=== PATIENT | female | born 1990 | race Caucasian/White ===

== ENCOUNTER 2016-11-06 20:52 | Emergency (ER) | payer OTHER ==
[~2016-11-06] VITALS: Ht 160 cm; Wt 58.9 kg
[~2016-11-06 20:52] MED LIST: CHOL2000 PO; COLE1TAB PO; FERR325T5 PO; IUD'IUD INT UTER; OXYC-57 PO; PRED20TA2 PO; SERT25TA PO; TRAZ100T29 PO
[2016-11-06 20:55] VITALS: TEMP 37.1; Ht 160 cm; Wt 58.9 kg
[2016-11-06 22:02] LABS: INR 1.1 (0.9-1.1); PARTIAL THROMBOPLASTIN RATIO 1.1; PROTHROMBIN TIME (PATIENT) 11.5 SECONDS (9.0-12.0)
[2016-11-06 22:11] LABS: PREG INTERNAL NEGATIVE QC NEG CLEAR BACKGROUND; PREG INTERNAL POSITIVE QC POS CONTROL LINE
[2016-11-06 22:21] LABS: HEMATOCRIT 34.5 % (37-47); MEAN CELL VOLUME 88.2 fL (80-100); MEAN CORPUSCULAR HEMOGLOBIN 30.7 pg (25-34); MEAN CORPUSCULAR HGB CONC 34.8 g/dl (32-36); MEAN PLATELET VOLUME 9.3 fL (7.4-10.4); PLATELET COUNT 226 K/uL (130-400); RED BLOOD COUNT 3.91 M/uL (4.2-5.4); WHITE BLOOD COUNT 7.66 K/uL (4.8-10.8)
[2016-11-06] MEDS ORDERED: LEVO1IUD INT UTER (22:39)
[2016-11-06] MEDS ORDERED: BUSP-8 PO (22:39)
[2016-11-06 22:40] LABS: BUN/CREATININE RATIO 15.7 (10-20); CALCIUM 8.9 mg/dl (8.5-10.1); CREATININE 0.76 mg/dl (0.60-1.20); MAGNESIUM 2.2 mg/dl (1.8-2.4); POTASSIUM 3.3 mmol/L (3.5-5.1); THYROID STIMULATING HORMONE 0.848 uIu/ml (0.300-4.500)
[2016-11-06 23:00] LABS: BASO % 0.4 %; BASO ABS # 0.03 K/uL (0-0.2); COMPLETE YES; EOS % 2.2 %; IG% 0.3 %; LYMPH % 52.6 %; LYMPH ABS # 4.03 K/uL (1.2-3.4); NEUT % 38.5 %; SMUDGE CELLS PRESENT
[2016-11-06 23:19] VITALS: BP 123/80; PULSE 62; O2SAT 100
--- NOTE | 2016-11-07 05:08 | EMERGENCY ROOM VISIT NOTE ---
History First contact with patient: 21:27 Chief Complaint: LEG PAIN,LEG INJURY Stated Complaint: BRUISING ON LEGS History of Present Illness The patient is a 26 year old female who presents to the Emergency Room with complaints of nontraumatic bruising to bilateral lower legs. Patient states she 's had this problem before. She is unsure why. She is on her menstrual cycle. She's been taking Motrin. No known injury to the area. Patient denies chest pain, dyspnea, fever, chills, recent illness, new medications, abdominal pain, numbness, tingling, rash to her chest or any other area. Review of Systems See HPI for pertinent positives & negatives. A total of 10 systems reviewed and were otherwise negative. Past Medical/Surgical History Medical Problems: (1) No pertinent past medical history Family History Patient reports no known family medical history. Social History Smoking Status: Never Smoker Marital Status: single Occupation Status: [email or web address] student Current/Historical Medications Scheduled Buspirone Hcl (Buspirone Hcl), 10 MG PO DAILY Cholecalciferol (Vitamin D3), 4,000 INTER.UNIT PO DAILY Ferrous Sulfate (Ferrous Sulfate), 325 MG PO DAILY Levonorgestrel (Iud) (Geovanna), INT UTER UD Sertraline (Zoloft), 25 MG PO DAILY Trazodone Hcl (Trazodone), 100 MG PO HS Allergies Coded Allergies: Ceftriaxone (Verified Allergy, Severe, anaphylaxis, 11/06/16) Pineapple (Verified Allergy, Intermediate, rash, 11/06/16) [place] (Verified Allergy, Intermediate, rash, 11/06/16) Codeine (Verified Adverse Reaction, Unknown, HALLUCINCATION/VOMITING, ) Physical Exam Vital Signs Date Time Temp Pulse Resp B/P Pulse Ox O2 Delivery O2 Flow Rate FiO2 11/06/16 23:19 62 16 123/80 100 Room Air 11/06/16 22:32 58 20 121/69 100 Room Air 11/06/16 20:55 37.1 78 20 141/78 99 Room Air Pain Rating (0-10): 0 Physical Exam VITALS: Vitals are noted on the nurse's note and reviewed by myself. Vital signs stable. GENERAL: Pleasant female, in no acute distress, nondiaphoretic, well-developed well-nourished. SKIN: Capillary reflex less than 2 seconds. Blanchable contusions to lower legs that is nonraised. No petechiae no rash to hands or feet, no skin sloughing HEENT: Normocephalic. PERRLA. EOMI. Nares patent. Mucous membranes moist. Neck is supple without nuchal rigidity. No bleeding gums. HEART: Regular rate and rhythm without murmurs gallops or rubs. LUNGS: Clear to auscultation bilaterally without wheezes, rales or rhonchi. No retractions or accessory muscle use. ABDOMEN: Positive bowel sounds x 4. Normal tympanic percussion. Soft, nontender, without masses or organomegaly. Bermudez sign negative. No guarding or rebound tenderness. MUSCULOSKELETAL: No gross musculoskeletal defects. No pedal edema. No calf tenderness. NEURO: Patient was alert and oriented to person place and time. Normal sensation to light and sharp touch. . No focal neurological deficits. Medical Decision & Procedures Laboratory Results 11/06/16 21:38 Red Blood Count 3.91, Mean Corpuscular Volume 88.2, Mean Corpuscular Hemoglobin 30.7, Mean Corpuscular Hemoglobin Concent 34.8, Mean Platelet Volume 9.3, Neutrophils (%) (Auto) 38.5, Lymphocytes (%) (Auto) 52.6, Monocytes (%) (Auto) 6.0, Eosinophils (%) (Auto) 2.2, Basophils (%) (Auto) 0.4, Neutrophils # (Auto) 2.95, Lymphocytes # (Auto) 4.03, Monocytes # (Auto) 0.46, Eosinophils # (Auto) 0.17, Basophils # (Auto) 0.03 11/06/16 21:38 Test 11/06/16 21:38 White Blood Count 7.66 K/uL (4.8-10.8) Red Blood Count 3.91 M/uL (4.2-5.4) Hemoglobin 12.0 g/dL (12.0-16.0) Hematocrit 34.5 % (37-47) Mean Corpuscular Volume 88.2 fL (80-100) Mean Corpuscular Hemoglobin 30.7 pg (25-34) Mean Corpuscular Hemoglobin Concent 34.8 g/dl (32-36) Platelet Count 226 K/uL (130-400) Mean Platelet Volume 9.3 fL (7.4-10.4) Neutrophils (%) (Auto) 38.5 % Lymphocytes (%) (Auto) 52.6 % Monocytes (%) (Auto) 6.0 % Eosinophils (%) (Auto) 2.2 % Basophils (%) (Auto) 0.4 % Neutrophils # (Auto) 2.95 K/uL (1.4-6.5) Lymphocytes # (Auto) 4.03 K/uL (1.2-3.4) Monocytes # (Auto) 0.46 K/uL (0.11-0.59) Eosinophils # (Auto) 0.17 K/uL (0-0.5) Basophils # (Auto) 0.03 K/uL (0-0.2) RDW Standard Deviation 42.3 fL (36.4-46.3) RDW Coefficient of Variation 13.1 % (11.5-14.5) Immature Granulocyte % (Auto) 0.3 % Immature Granulocyte # (Auto) 0.02 K/uL (0.00-0.02) Smudge Cells PRESENT Prothrombin Time 11.5 SECONDS (9.0-12.0) Prothromb Time International Ratio 1.1 (0.9-1.1) Activated Partial Thromboplast Time 28.3 SECONDS (21.0-31.0) Partial Thromboplastin Ratio 1.1 Anion Gap 9.0 mmol/L (3-11) Est Creatinine Clear Calc Drug Dose 92.8 ml/min Estimated GFR () 125.5 Estimated GFR (Non- 108.3 BUN/Creatinine Ratio 15.7 (10-20) Calcium Level 8.9 mg/dl (8.5-10.1) Magnesium Level 2.2 mg/dl (1.8-2.4) Thyroid Stimulating Hormone (TSH) 0.848 uIu/ml (0.300-4.500) Human Chorionic Gonadotropin, Qual NEG (NEG) ED Course Prior records/ancillary studies reviewed and summarized above. Nursing notes reviewed. The patient's history was concerning for bruising to the lower legs Differential diagnosis: Etiologies such as thrombocytopenia, bleeding disorder, contusion, infection, allergic reaction, electrolyte abnormalities, as well as others were entertained. Physical examination: As above. ER treatment provided: IV Lock On reassessment the patient felt better. Diagnostics interpretation by me: The labs revealed stable H&H. No thrombocytopenia Exam and history seem consistent with spontaneous bruising with unclear etiology. Patient had no petechiae. The bruises were blanchable. There are very small 1 cm diameter. Patient was advised to follow-up with health services in a few days or here in the ER sooner for bleeding gums, chest pain, fatigue, difficulty breathing, increased bruising, worsening signs or symptoms or as needed. By the evaluation outlined above emergent etiologies such as infection, electrolyte abnormalities, anemia, thrombocytopenia, metabolic, as well as others were deemed relatively unlikely. The pt informed about the findings as listed above. All questions were answered and pleased with the treatment. Return instructions were outlined and the patient was discharged in stable condition. Referral: The patient was referred back to primary care physician for follow-up in 2 to 3 days for a recheck of the current condition. Medical Decision As above Impression Primary Impression: Easy bruising Departure Information Dispostion Home / Self-Care Condition GOOD Forms HOME CARE DOCUMENTATION FORM, IMPORTANT VISIT INFORMATION Patient Instructions Bruises Contusions, My [facility] [place] [employer] Additional Instructions Avoid taking Motrin or any other anti-inflammatories. Return to the ER immediately for bleeding problems, abdominal pain, vomiting, fevers, chest pains, difficulty breathing, worsening of your condition, or as needed. Follow up with your primary physician in 2-3 days for a recheck of your current condition.
== END 2016-11-06 23:30 | disposition home or self-care (01) ==
LOC: C.EDB 20:53 → C.EDA 23:30
DX: S80.11XA Contusion of right lower leg, initial encounter (principal); S80.12XA Contusion of left lower leg, initial encounter; X58.XXXA Exposure to other specified factors, initial encounter; Z79.899 Other long term (current) drug therapy; Z88.5 Allergy status to narcotic agent; Z91.018 Allergy to other foods

== ENCOUNTER → 2017-04-08 | Outpatient (CLI) | payer OTHER ==
[~2017-04-08] MED LIST changes: +BUSP-8 PO; -COLE1TAB PO; -IUD'IUD INT UTER; +LEVO1IUD INT UTER; -OXYC-57 PO; -PRED20TA2 PO
--- NOTE | 2017-04-08 09:05 | DIAGNOSTIC IMAGING REPORT ---
RIGHT KNEE MRI HISTORY: RIGHT KNEE PAIN Right COMPARISON STUDY: None. TECHNIQUE: Multiplanar multisequence MRI of the right knee was performed according to standard department protocol without the use of contrast. FINDINGS: Menisci: The medial and lateral menisci are intact. Ligaments: The anterior and posterior cruciate ligaments are intact. The medial and lateral collateral ligaments are normal in appearance. Extensor mechanism: The quadriceps tendon and patellar ligament are intact. Articular cartilage and bone: The articular cartilage is intact, and normal marrow signal intensity is seen throughout the imaged osseous structures. Joint effusion: None. Soft tissues: Subcentimeter popliteal cyst. There is a skin marker anterior to the patellar ligament. No significant soft tissue edema. No soft tissue fluid collections. IMPRESSION: No significant abnormality within the right knee. No fracture or dislocation. Electronically signed by: Nirmal Etienne M.D. 04/08/2017 9:03 AM Dictated Date/Time: 04/08/2017 8:59 AM
== END | disposition home or self-care (01) ==
LOC: C.MRI 07:35
PROVIDERS: ATTEND Physician Assistant
DX: M25.561 Pain in right knee (principal)

== ENCOUNTER 2017-11-05 11:35 | Emergency (ER) | payer OTHER ==
[~2017-11-05] VITALS: Ht 160 cm; Wt 61.3 kg
[2017-11-05 11:38] VITALS: Ht 160 cm; Wt 61.3 kg
[2017-11-05] MEDS ORDERED: OXYCODONE/ACETAMINOPHEN 5-325 TAB PO STA (11:49)
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
[2017-11-05] MEDS ORDERED: ZYR/5 PO (12:28)
[2017-11-05] MEDS ORDERED: LAMO150T PO (12:28)
[2017-11-05] MEDS ORDERED: PARO1TAB29 PO (12:28)
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
[2017-11-05] MEDS ORDERED: DIAZEPAM 5MG TAB PO STA (12:49)
[2017-11-05] MEDS ORDERED: CYCLOBENZAPRINE HCL 5 MG TAB PO STA (12:49)
[2017-11-05] MEDS ORDERED: DIAZ-165 PO (13:41)
[2017-11-05] MEDS ORDERED: OXYC-57 PO (13:41)
[2017-11-05 14:00] VITALS: BP 121/66; PULSE 101; TEMP 36.8; O2SAT 98
== END 2017-11-05 14:00 | disposition home or self-care (01) ==
LOC: C.EDB 11:37 → C.EDD 14:00
DX: M54.2 Cervicalgia (principal); V89.2XXA Person injured in unspecified motor-vehicle accident, traffic, initial encounter

== ENCOUNTER → 2017-11-15 | Outpatient (CLI) | payer OTHER ==
[~2017-11-15] MED LIST changes: -BUSP-8 PO; +LAMO150T PO; -LEVO1IUD INT UTER; +OXYC-57 PO; +PARO1TAB29 PO; -SERT25TA PO; +ZYR/5 PO
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
== END | disposition home or self-care (01) ==
LOC: C.MRI 08:09
PROVIDERS: ATTEND Family Medicine
DX: M54.2 Cervicalgia (principal)

== ENCOUNTER → 2017-12-09 | Outpatient (CLI) | payer OTHER ==
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
== END | disposition home or self-care (01) ==
PROVIDERS: ATTEND Family Medicine
DX: M54.2 Cervicalgia (principal); Z87.828 Personal history of other (healed) physical injury and trauma